=== PATIENT | female | born 1960 | race Caucasian/White ===

== ENCOUNTER 2019-03-19 17:19 | Emergency (ER) | payer BC, OTHER ==
[2019-03-19] MEDS ORDERED: Acetaminophen/HYDROcodone 325-5 MG Tab PO ONE (18:09)
--- NOTE | 2019-03-19 18:48 | EDM.PDOC ---
ED HPI GENERAL MEDICAL PROBLEM - General Chief Complaint: Lower Extremity Injury/Pain Stated Complaint: SLIPPED ON ICE,LEFT ANKLE INJURY Time Seen by Provider: 03/19/19 17:44 Source of Information: Reports: Patient, RN Notes Reviewed - History of Present Illness INITIAL COMMENTS - FREE TEXT/NARRATIVE: 58-year-old female comes in with left foot and ankle pain. She slipped on the ice about an hour ago in her left ankle and foot. Swelling to the top of her foot and has quite severe pain with weightbearing, no other area of pain or injury. Left Ankle Pain Score (Numeric/FACES): 9 - Related Data Allergies Allergy/AdvReac Type Severity Reaction Status Date / Time Penicillins Allergy Anaphylactic Verified 03/19/19 17:43 Shock Home Meds: Home Meds . [No Known Home Meds] 03/19/19 [History] Past Medical History - Past Surgical History HEENT Surgical History: Reports: Tonsillectomy GI Surgical History: Reports: Appendectomy Female Surgical History: Reports: Hysterectomy Musculoskeletal Surgical History: Reports: Hip Replacement Social & Family History - Tobacco Use Smoking Status *Q: Current Every Day Smoker Years of Tobacco use: 30 Packs/Tins Daily: 1 - Caffeine Use Caffeine Use: Reports: Coffee - Recreational Drug Use Recreational Drug Use: No Review of Systems - Review of Systems Review Of Systems: See Below Constitutional: Reports: No Symptoms Mouth/Throat: Reports: No Symptoms Respiratory: Denies: Shortness of Breath, Pleuritic Chest Pain Cardiovascular: Denies: Chest Pain GI/Abdominal: Denies: Abdominal Pain, Nausea, Vomiting Musculoskeletal: Reports: Joint Pain (Left foot and ankle). Denies: Back Pain, Leg Pain Skin: Denies: Bruising Neurological: Reports: No Symptoms ED EXAM, GENERAL - Physical Exam Exam: See Below General Appearance: Alert, Mild Distress Head: Atraumatic Neck: Supple Respiratory/Chest: No Respiratory Distress, Lungs Clear, Normal Breath Sounds Cardiovascular: Regular Rate, Rhythm Extremities: Joint Swelling (There is swelling of the dorsal aspect of the left mid foot with localized tenderness of the midfoot dorsally and laterally and also very minimal swelling and moderate tenderness of the ankle medially and laterally. Point is stable. Leg is otherwise completely nontender) Course - Vital Signs Last Recorded V/S: Last Vital Signs Temp 98.2 F 03/19/19 17:39 Pulse 78 03/19/19 17:39 Resp 18 03/19/19 17:39 BP 168/78 H 03/19/19 17:39 Pulse Ox 96 03/19/19 17:39 - Orders/Labs/Meds Orders: Active Orders 24 hr Category Date Time Status Ankle Min 3V Lt [CR] Stat Exams 03/19/19 17:50 Taken Foot Comp Min 3V Lt [CR] Stat Exams 03/19/19 17:50 Taken Meds: Medications Discontinued Medications Generic Name Dose Route Start Last Admin Trade Name Kelli PRN Reason Stop Dose Admin Hydrocodone Bitart/Acetaminophen 1 tab 03/19/19 18:09 03/19/19 18:32 [place] 325-5 Mg PO 03/19/19 18:10 1 tab ONETIME ONE Administration - Re-Assessments/Exams Free Text/Narrative Re-Assessment/Exam: 03/19/19 19:00 X-rays of the ankle and foot do show spurring of the heel and also some spurring of the inferior lateral aspect of the fibula. There is a calcification inferior to the heel of the left foot but the edges are smooth and rounded, I do not believe that is an avulsion fracture. I discussed all of these findings with patient and her . We will treat this with Jeff wrap, ice packs and elevation. She does have crutches at home. Discharge instructions as documented. Departure - Departure Time of Disposition: 18:46 Disposition: Home, Self-Care 01 Condition: Fair Clinical Impression: Fall, Left ankle sprain, Sprain of foot, left - Discharge Information Instructions: Ankle Sprain, [id number] Referrals: PCP,None [Primary Care Provider] - Forms: ED Department Discharge Additional Instructions: Jeff wrap, ice packs and elevation as needed for swelling, Tylenol every 6-8 hours for mild to moderate discomfort or hydrocodone if needed for more severe pain. As discussed you also can take one half tablet hydrocodone along with 500 mg Tylenol for less side effects and better pain control than just Tylenol alone. Use crutches until pain resolving, have rechecked if not getting back towards normal in 5-7 days as expected. - My Orders Last 24 Hours: My Active Orders 03/19/19 17:50 Ankle Min 3V Lt [CR] Stat Foot Comp Min 3V Lt [CR] Stat - Assessment/Plan Last 24 Hours: My Active Orders 03/19/19 17:50 Ankle Min 3V Lt [CR] Stat Foot Comp Min 3V Lt [CR] Stat
--- NOTE | 2019-03-20 06:51 | CR ---
Left ankle: Four views of the left ankle were obtained. Comparison: No prior ankle exam. Slight calcifications seen within the distal Achilles tendon at the attachment to the calcaneus. Plantar spur is also noted. Ankle mortise is symmetric. No acute fracture or dislocation is seen. Impression: 1. Findings as noted above. 2. No acute bony abnormality is appreciated on left ankle exam. Diagnostic code #2
--- NOTE | 2019-03-20 08:51 | CR ---
Left foot: Four views of left foot were obtained. Comparison: No previous foot exam. Calcaneal spurs and calcifications as noted on ankle exam. No acute fracture, dislocation or other bony abnormality is appreciated. Impression: 1. Nothing acute is appreciated on left foot exam. Diagnostic code #2
== END 2019-03-19 19:09 | disposition home or self-care (01) ==
LOC: JD.ED 17:19
DX: S93.402A Sprain of unspecified ligament of left ankle, initial encounter (principal); S93.602A Unspecified sprain of left foot, initial encounter; F17.210 Nicotine dependence, cigarettes, uncomplicated; Z88.0 Allergy status to penicillin; W00.0XXA Fall on same level due to ice and snow, initial encounter
CPT/HCPCS: 73610; 73630; 99283; A9270

== ENCOUNTER 2021-02-17 20:43 | Emergency (ER) | payer OTHER ==
--- NOTE | 2021-02-17 21:51 | EDM.PDOC ---
ED HPI GENERAL MEDICAL PROBLEM - General Chief Complaint: General Stated Complaint: FEVER/COUGH/SORE THROAT/EAR PAIN Time Seen by Provider: 02/17/21 20:49 Source of Information: Reports: Patient, RN Notes Reviewed History Limitations: Reports: No Limitations - History of Present Illness INITIAL COMMENTS - FREE TEXT/NARRATIVE: Patient is a 60-year-old female who presents to the ER for the evaluation of her multiple [id number] symptoms. The patient states that these started about 2 days ago, she has felt feverish and chilled, has had a cough, some shortness of breath, head congestion, ear pain, sore throat and generalized abdominal aches. States she does have a history of kidney stones, but this feels different than that. She was not vaccinated for COVID-19. 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 States she does have a history of elevated blood pressures, and she is concerned because her blood pressures have been elevated when she has not been feeling well. Bilateral Flank Pain Score (Numeric/FACES): 8 - Related Data Allergies Allergy/AdvReac Type Severity Reaction Status Date / Time Penicillins Allergy Anaphylactic Verified 02/17/21 21:08 Shock Home Meds: Home Meds Levofloxacin [Levaquin] 500 mg PO DAILY #6 tablet 02/17/21 [Rx] Past Medical History - Past Surgical History HEENT Surgical History: Reports: Tonsillectomy GI Surgical History: Reports: Appendectomy Female Surgical History: Reports: Hysterectomy Musculoskeletal Surgical History: Reports: Hip Replacement Social & Family History - Caffeine Use Caffeine Use: Reports: Coffee ED ROS GENERAL - Review of Systems Review Of Systems: Comprehensive ROS is negative, except as noted in HPI. ED EXAM, GENERAL - Physical Exam Exam: See Below Exam Limited By: No Limitations General Appearance: Alert, WD/WN, No Apparent Distress Ears: Normal External Exam, Normal Canal, Hearing Grossly Normal, Normal TMs Respiratory/Chest: No Respiratory Distress, Lungs Clear, Normal Breath Sounds, No Accessory Muscle Use, Chest Non-Tender Cardiovascular: Normal Peripheral Pulses, Regular Rate, Rhythm, No Edema GI/Abdominal: Normal Bowel Sounds, Soft, Non-Tender, No Distention, No Mass Extremities: Normal Inspection, Normal Capillary Refill Neurological: Alert, Oriented, Normal Cognition, No Motor/Sensory Deficits Psychiatric: Normal Affect, Normal Mood Skin Exam: Warm, Dry, Intact, Normal Color, No Rash Course - Vital Signs Last Recorded V/S: Last Vital Signs Temp 96.6 F L 02/17/21 21:03 Pulse 92 02/17/21 21:03 Resp 16 02/17/21 21:03 BP 174/74 H 02/17/21 21:03 Pulse Ox 97 02/17/21 21:03 - Orders/Labs/Meds Orders: Active Orders 24 hr Category Date Time Status Chest 1V Frontal [CR] Stat Exams 02/17/21 20:49 Ordered CULTURE URINE [MREF] Urgent Lab 02/17/21 22:06 Ordered Labs: Laboratory Tests 02/17/21 02/17/21 02/17/21 Range/Units 20:55 21:10 21:10 WBC 14.44 H (3.98-10.04) K/mm3 RBC 4.49 (3.98-5.22) M/mm3 Hgb 13.5 (11.2-15.7) gm/dl Hct 40.7 (34.1-44.9) % MCV 90.6 (79.4-94.8) fl MCH 30.1 (25.6-32.2) pg MCHC 33.2 (32.2-35.5) g/dl RDW Std Deviation 45.0 (36.4-46.3) fL Plt Count 202 (182-369) K/mm3 MPV 10.0 (9.4-12.3) fl Neut % (Auto) 77.7 H (34.0-71.1) % Lymph % (Auto) 12.6 L (19.3-51.7) % [place] % (Auto) 8.2 (4.7-12.5) % Eos % (Auto) 1.0 (0.7-5.8) Baso % (Auto) 0.3 (0.1-1.2) % Neut # (Auto) 11.21 H (1.56-6.13) K/mm3 Lymph # (Auto) 1.82 (1.18-3.74) K/mm3 [place] # (Auto) 1.19 H (0.24-0.36) K/mm3 Eos # (Auto) 0.15 (0.04-0.36) K/mm3 Baso # (Auto) 0.04 (0.01-0.08) K/mm3 Sodium 140 (136-145) mEq/L Potassium 3.6 (3.5-5.1) mEq/L Chloride 103 (98-107) mEq/L Carbon Dioxide 30 (21-32) mEq/L Anion Gap 10.6 (5-15) BUN 18 (7-18) mg/dL Creatinine 0.9 (0.55-1.02) mg/dL Est Cr Clr Drug Dosing 62.23 mL/min Estimated GFR (MDRD) > 60 (>60) mL/min BUN/Creatinine Ratio 20.0 H (14-18) Glucose 105 H (70-99) mg/dL Calcium 9.1 (8.5-10.1) mg/dL Total Bilirubin 0.2 (0.2-1.0) mg/dL AST 18 (15-37) U/L ALT 22 (14-59) U/L Alkaline Phosphatase 115 (46-116) U/L C-Reactive Protein 5.4 H* (<1.0) mg/dL Total Protein 7.4 (6.4-8.2) g/dl Albumin 3.7 (3.4-5.0) g/dl Globulin 3.7 gm/dL Albumin/Globulin Ratio 1.0 (1-2) Urine Color (Yellow) Urine Appearance (Clear) Urine pH (5.0-8.0) Ur Specific [place] (1.005-1.030) Urine Protein (Negative) Urine Glucose (UA) (Negative) Urine Ketones (Negative) Urine Occult Blood (Negative) Urine Nitrite (Negative) Urine Bilirubin (Negative) Urine Urobilinogen (0.2-1.0) Ur Leukocyte Esterase (Negative) Urine RBC (0-5) /hpf Urine WBC (0-5) /hpf Ur Squamous Epith Cells (0-5) /hpf Urine Bacteria (FEW) /hpf Urine Mucus (FEW) /hpf Urine Yeast (NOT SEEN) SARS-CoV-2 RNA (MORGAN) Negative (NEGATIVE) 02/17/21 Range/Units 21:10 WBC (3.98-10.04) K/mm3 RBC (3.98-5.22) M/mm3 Hgb (11.2-15.7) gm/dl Hct (34.1-44.9) % MCV (79.4-94.8) fl MCH (25.6-32.2) pg MCHC (32.2-35.5) g/dl RDW Std Deviation (36.4-46.3) fL Plt Count (182-369) K/mm3 MPV (9.4-12.3) fl Neut % (Auto) (34.0-71.1) % Lymph % (Auto) (19.3-51.7) % [place] % (Auto) (4.7-12.5) % Eos % (Auto) (0.7-5.8) Baso % (Auto) (0.1-1.2) % Neut # (Auto) (1.56-6.13) K/mm3 Lymph # (Auto) (1.18-3.74) K/mm3 [place] # (Auto) (0.24-0.36) K/mm3 Eos # (Auto) (0.04-0.36) K/mm3 Baso # (Auto) (0.01-0.08) K/mm3 Sodium (136-145) mEq/L Potassium (3.5-5.1) mEq/L Chloride (98-107) mEq/L Carbon Dioxide (21-32) mEq/L Anion Gap (5-15) BUN (7-18) mg/dL Creatinine (0.55-1.02) mg/dL Est Cr Clr Drug Dosing mL/min Estimated GFR (MDRD) (>60) mL/min BUN/Creatinine Ratio (14-18) Glucose (70-99) mg/dL Calcium (8.5-10.1) mg/dL Total Bilirubin (0.2-1.0) mg/dL AST (15-37) U/L ALT (14-59) U/L Alkaline Phosphatase (46-116) U/L C-Reactive Protein (<1.0) mg/dL Total Protein (6.4-8.2) g/dl Albumin (3.4-5.0) g/dl Globulin gm/dL Albumin/Globulin Ratio (1-2) Urine Color Yellow (Yellow) Urine Appearance Clear (Clear) Urine pH 7.0 (5.0-8.0) Ur Specific [place] 1.015 (1.005-1.030) Urine Protein Negative (Negative) Urine Glucose (UA) Negative (Negative) Urine Ketones Negative (Negative) Urine Occult Blood 2+ H (Negative) Urine Nitrite Negative (Negative) Urine Bilirubin Negative (Negative) Urine Urobilinogen 0.2 (0.2-1.0) Ur Leukocyte Esterase 1+ H (Negative) Urine RBC 10-20 H (0-5) /hpf Urine WBC 10-20 H (0-5) /hpf Ur Squamous Epith Cells 5-10 H (0-5) /hpf Urine Bacteria Moderate H (FEW) /hpf Urine Mucus Few (FEW) /hpf Urine Yeast Few H (NOT SEEN) SARS-CoV-2 RNA (MORGAN) (NEGATIVE) Meds: Medications Discontinued Medications Generic Name Dose Route Start Last Admin Trade Name Freq PRN Reason Stop Dose Admin Levofloxacin 500 mg 02/17/21 22:06 Levofloxacin 500 Mg Tab PO 02/17/21 22:07 ONETIME ONE - Re-Assessments/Exams Free Text/Narrative Re-Assessment/Exam: 02/17/21 21:50 patient presents to the ER for evaluation of her multiple [id number] symptoms. Covid swab obtained at time of triage, along with some basic labs, chest x-ray and a urinalysis for further investigation. It is highly likely that the patient does have COVID-19. 02/17/21 22:08 Since COVID-19 screen did come back negative for today's purposes however the patient states that the nurse did not think she got a most accurate swab. Patient White blood cell count is elevated at 14.44 with 77% neutrophils on the auto differential. CRP is elevated at 5.4. Urinalysis is suspect for ongoing UTI possibly pyelonephritis. urine culture has been sent as well. We will start her on oral Levaquin, I do highly suspect that she does have Covid, and the swab was done either too early, or not well enough and she should self isolate until she can get swabbed again in a few days. I will give her a note to stay home from work to do as such. If she indeed gets a second negative Covid screen, then she may be released to normal work. Departure - Departure Time of Disposition: 22:13 Disposition: Home, Self-Care 01 Condition: Good Clinical Impression: Suspected COVID-19 virus infection UTI (urinary tract infection) Qualifiers: Urinary tract infection type: acute pyelonephritis Qualified Code(s): N10 - Acute pyelonephritis - Discharge Information *PRESCRIPTION DRUG MONITORING PROGRAM REVIEWED*: No *COPY OF PRESCRIPTION DRUG MONITORING REPORT IN PATIENT BABAR: No Prescriptions: Levofloxacin [Levaquin] 500 mg PO DAILY #6 tablet Instructions: 10 Things You Can Do to Manage Your COVID-19 Symptoms at Home - [facility] (11/27/2020) Referrals: PCP,None [Primary Care Provider] - Forms: ED Department Discharge, ED Return to Work/School Form Additional Instructions: You were evaluated in the ER today for your [id number] symptoms. Your COVID-19 test did come back negative, but sometimes these are false negatives. These Covid screens are only about 60% accurate; and it is common to test negative initially but then test positive a few days later. Due to this, we recommend that you try to isolate yourself away from others, and get retested for COVID-19 in about 3 or 4 days. There are multiple sites that can do this, there is a drive-through clinic by the , there is a walk-in clinic and our Covid clinic that can help you with these. Your white count was slightly elevated, and your urinalysis was suspect for a UTI/pyelonephritis in nature. You have been started on antibiotics; Levaquin 500 mg 1 tablet daily. First dose was given in the ER, and you will need to go to the [place] drugstore, tomorrow to warp picker the rest of these medications up and take as directed. Please call the drugstore prior to going there and tell them that you think you have COVID-19, so they can bring the medication out to you to try to limit exposure to others. Continue all other medications as previously prescribed. I would recommend that you obtain a pulse oximeter, to monitor your oxygen levels. This can be obtained at many drugstores in [place], but inquire about this at your local drugstore tomorrow to see if they have one available for you. If your oxygen level should drop below 90%, for prolonged amount of time like 5 or 10 minutes at rest, you should come back to the ER for more urgent examination. It is highly suspect that you do indeed have COVID-19, and I would recommend that you try to quarantine yourself away from others for at least 10 days from the time you are symptomatic. Do not hesitate to return to the ER at any time if symptoms change or worsen. Sepsis Event Note (ED) - Evaluation Sepsis Screening Result: No Definite Risk - Focused Exam Vital Signs: Vital Signs Temp Pulse Resp BP Pulse Ox 02/17/21 21:03 96.6 F L 92 16 174/74 H 97 - My Orders Last 24 Hours: My Active Orders 02/17/21 20:49 Chest 1V Frontal [CR] Stat 02/17/21 22:06 CULTURE URINE [MREF] Urgent - Assessment/Plan Last 24 Hours: My Active Orders 02/17/21 20:49 Chest 1V Frontal [CR] Stat 02/17/21 22:06 CULTURE URINE [MREF] Urgent
[2021-02-17] MEDS ORDERED: Levofloxacin 500 MG Tab PO ONE (22:06)
--- NOTE | 2021-02-18 06:27 | CR ---
Chest: Portable view of the chest was obtained. Comparison: No prior chest imaging is available. Heart size and mediastinum are within normal limits. Lucency is noted within the left lung apex most likely representing small bullous change with adjacent scarring. Lungs otherwise are clear with no acute parenchymal change. Bony structure shows mild degenerative change within the spine with scattered end plate spurring. Impression: 1. Probable small bullous change within left upper chest with slight adjacent scarring. 2. Nothing acute is otherwise seen on portable chest x-ray. Diagnostic code #2
== END 2021-02-17 22:20 | disposition home or self-care (01) ==
LOC: JD.ED 20:43
DX: N10 Acute pyelonephritis (principal); Z20.822 Contact with and (suspected) exposure to COVID-19; Z88.0 Allergy status to penicillin
CPT/HCPCS: 36415; 71045; 80053; 81001; 85025; 86140; 87086; 87635; 99284; A9270; U0002

== ENCOUNTER 2021-05-14 19:32 | Emergency (ER) | payer MEDICAID, OTHER ==
[2021-05-14] MEDS ORDERED: Sodium Chloride 0.9% 10 ML Syringe FLUSH PRN (19:51)
--- NOTE | 2021-05-14 20:57 | EDM.PDOC ---
ED HPI GENERAL MEDICAL PROBLEM - General Chief Complaint: Cardiovascular Problem Stated Complaint: RAPID HEART BEAT Time Seen by Provider: 05/14/21 20:03 Source of Information: Reports: Patient, Family () History Limitations: Reports: No Limitations - History of Present Illness INITIAL COMMENTS - FREE TEXT/NARRATIVE: Mrs. Soto is a most pleasant 60-year-old woman who now presents the ED after experiencing rapid, regular palpitations that developed suddenly while she was watching television around 18:40 this evening. She put a pulse oximeter on, which indicated a heart rate of 150 to 170 bpm. While she had the palpitations, she had mild left-sided chest pain, some blurry vision, very slight dyspnea, some nausea, and diaphoresis. The patient took 3 aspirin, along with one of her 's nitroglycerin tablets, and one of her 's [place] tablets. The symptoms self-terminated after about 30 minutes, prior to arrival to the ED. At present, the patient states that she feels back to normal. The patient states that she had a similar episode, also lasting about 30 minutes, this past summer. She did not seek medical evaluation following that event. The patient notes that she was diagnosed with COVID-19 on 04/16/2021 or 04/17/2021. Her symptoms resolved on 04/24/2021 or 04/25/2021. At triage, the patient's initial BP was found to be modestly elevated 154/94, otherwise, she was hemodynamically stable, afebrile, saturating 96% on room air. She appears to be comfortable, in no acute distress. Since the resolution of her COVID symptoms, the patient denies having a recent fever, chills, sore throat, ear pain, nasal or sinus congestion, cough, dyspnea, chest pain, palpitations, nausea, vomiting, constipation, diarrhea, abdominal pain, urinary symptoms, recent weight gain or weight loss, recent bloody bowel movements or black bowel movements, recent joint aches, headaches, or rashes. The patient's PCP is Celi Hernandez NP, in [place]. She has not received a COVID vaccination, nor an influenza vaccination this season. - Related Data Allergies Allergy/AdvReac Type Severity Reaction Status Date / Time Penicillins Allergy Anaphylactic Verified 05/14/21 19:45 Shock Home Meds: Home Meds Lisinopril/Hydrochlorothiazide [Lisinopril-HCTZ 10-12.5 MG] 1 tab PO DAILY 05/14/21 [History] Metoprolol Succinate [Toprol XL] 1 tab PO BEDTIME #30 tab.er 05/14/21 [Rx] Past Medical History Cardiovascular History: Reports: High Cholesterol (untreated), Hypertension Musculoskeletal History: Reports: Osteoarthritis Endocrine/Metabolic History: Reports: Obesity/BMI 30+ - Infectious Disease History Infectious Disease History: Reports: Novel Coronavirus (dx'd 04/16/2021 or 04/17/2021) - Past Surgical History HEENT Surgical History: Reports: Oral Surgery (dental extractions), Tonsillectomy GI Surgical History: Reports: Appendectomy Female Surgical History: Reports: Section (x 1), Hysterectomy (partial) Musculoskeletal Surgical History: Reports: Hip Replacement (right) Social & Family History - Tobacco Use Tobacco Use Status *Q: Current Every Day Tobacco User Years of Tobacco use: 41 Packs/Tins Daily: 0.5 Packs/Tins Daily Comment: Down from 1.5 ppd Tobacco Use Comment: Started smoking 1980 - Caffeine Use Caffeine Use: Reports: Coffee - Alcohol Use Alcohol Use History: Yes Alcohol Use Frequency: Rarely - Recreational Drug Use Recreational Drug Use: No - Living Situation & Occupation Living situation: Reports: , with Spouse 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 ED EXAM, GENERAL - Physical Exam Exam: See Below Exam Limited By: No Limitations General Appearance: Alert, WD/WN, No Apparent Distress Eye Exam: Bilateral Eye: EOMI, Normal Inspection Ears: Normal External Exam, Hearing Grossly Normal Nose: Normal Inspection Throat/Mouth: Normal Inspection, Normal Lips, Normal Voice, No Airway Compromise Head: Atraumatic, Normocephalic Neck: Normal Inspection, Full Range of Motion Respiratory/Chest: No Respiratory Distress, Lungs Clear, Normal Breath Sounds, No Accessory Muscle Use Cardiovascular: Normal Peripheral Pulses, Regular Rate, Rhythm, No Gallop, No JVD, No Murmur, No Rub Peripheral Pulses: 3+: Radial (L), Radial (R) GI/Abdominal: Normal Bowel Sounds, Soft, Non-Tender, No Organomegaly, No Distention, No Abnormal Bruit, No Mass Back Exam: Normal Inspection, Full Range of Motion, NT Extremities: Normal Inspection, Normal Range of Motion, Normal Capillary Refill Neurological: Alert, Oriented, Normal Cognition, No Motor/Sensory Deficits Psychiatric: Normal Affect Skin Exam: Warm, Dry, Intact, Normal Color, No Rash #1 Interpretation EKG Date: 05/14/21 Time: 19:38 Rhythm: NSR Rate (Beats/Min): 72 [place]: Normal P-Wave: Present QRS: Normal ST-T: Depressed (<[address] pression V3V6 and inferior leads, but no T wave inversions) QT: Normal Comparison: NA - No Prior EKG #2 Interpretation EKG Date: 05/14/21 Time: 21:09 Rhythm: Other (SVT) Rate (Beats/Min): 160 [place]: Normal P-Wave: Absent QRS: Normal ST-T: Depressed (ST depression V2-V6 and inferior leads, but no T-wave inversions) QT: Prolonged (QTc 493 ms - likely longer due to rate) Comparison: Change From Previous EKG #3 Interpretation EKG Date: 05/14/21 Time: 21:27 Rhythm: NSR Rate (Beats/Min): 71 [place]: Normal P-Wave: Present QRS: Normal ST-T: Normal QT: Normal Comparison: Change From Previous EKG Course - Vital Signs Last Recorded V/S: Last Vital Signs Temp 36.7 C 05/14/21 19:40 Pulse 67 05/14/21 23:14 Resp 17 05/14/21 23:14 BP 148/71 H 05/14/21 23:14 Pulse Ox 97 05/14/21 23:14 - Orders/Labs/Meds Labs: Laboratory Tests 05/14/21 05/14/21 05/14/21 Range/Units 20:00 20:05 20:05 WBC 8.07 (3.98-10.04) K/mm3 RBC 4.73 (3.98-5.22) M/mm3 Hgb 14.1 (11.2-15.7) gm/dl Hct 42.8 (34.1-44.9) % MCV 90.5 (79.4-94.8) fl MCH 29.8 (25.6-32.2) pg MCHC 32.9 (32.2-35.5) g/dl RDW Std Deviation 44.4 (36.4-46.3) fL Plt Count 209 (182-369) K/mm3 MPV 9.9 (9.4-12.3) fl Neut % (Auto) 58.1 (34.0-71.1) % Lymph % (Auto) 29.2 (19.3-51.7) % Valley % (Auto) 9.7 (4.7-12.5) % Eos % (Auto) 2.1 (0.7-5.8) Baso % (Auto) 0.5 (0.1-1.2) % Neut # (Auto) 4.69 (1.56-6.13) K/mm3 Lymph # (Auto) 2.36 (1.18-3.74) K/mm3 Valley # (Auto) 0.78 H (0.24-0.36) K/mm3 Eos # (Auto) 0.17 (0.04-0.36) K/mm3 Baso # (Auto) 0.04 (0.01-0.08) K/mm3 PT 9.5 L (9.7-12.0) SECONDS INR < 0.93 D-Dimer, Quantitative 0.43 (0.19-0.50) mg/L Sodium (136-145) mEq/L Potassium (3.5-5.1) mEq/L Chloride (98-107) mEq/L Carbon Dioxide (21-32) mEq/L Anion Gap (5-15) BUN (7-18) mg/dL Creatinine (0.55-1.02) mg/dL Est Cr Clr Drug Dosing Estimated GFR (MDRD) (>60) mL/min BUN/Creatinine Ratio (14-18) Glucose (70-99) mg/dL Calcium (8.5-10.1) mg/dL Magnesium (1.8-2.4) mg/dL Total Bilirubin (0.2-1.0) mg/dL AST (15-37) U/L ALT (14-59) U/L Alkaline Phosphatase (46-116) U/L Troponin I (0.00-0.056) ng/mL NT-Pro-B Natriuret Pep (0-125) pg/mL Total Protein (6.4-8.2) g/dl Albumin (3.4-5.0) g/dl Globulin gm/dL Albumin/Globulin Ratio (1-2) TSH 3rd Generation 1.671 (0.358-3.74) uIU/mL 05/14/21 05/14/21 Range/Units 20:05 20:05 WBC (3.98-10.04) K/mm3 RBC (3.98-5.22) M/mm3 Hgb (11.2-15.7) gm/dl Hct (34.1-44.9) % MCV (79.4-94.8) fl MCH (25.6-32.2) pg MCHC (32.2-35.5) g/dl RDW Std Deviation (36.4-46.3) fL Plt Count (182-369) K/mm3 MPV (9.4-12.3) fl Neut % (Auto) (34.0-71.1) % Lymph % (Auto) (19.3-51.7) % Valley % (Auto) (4.7-12.5) % Eos % (Auto) (0.7-5.8) Baso % (Auto) (0.1-1.2) % Neut # (Auto) (1.56-6.13) K/mm3 Lymph # (Auto) (1.18-3.74) K/mm3 Valley # (Auto) (0.24-0.36) K/mm3 Eos # (Auto) (0.04-0.36) K/mm3 Baso # (Auto) (0.01-0.08) K/mm3 PT (9.7-12.0) SECONDS INR D-Dimer, Quantitative (0.19-0.50) mg/L Sodium 143 (136-145) mEq/L Potassium 3.7 (3.5-5.1) mEq/L Chloride 105 (98-107) mEq/L Carbon Dioxide 30 (21-32) mEq/L Anion Gap 11.7 (5-15) BUN 19 H (7-18) mg/dL Creatinine 0.9 (0.55-1.02) mg/dL Est Cr Clr Drug Dosing TNP Estimated GFR (MDRD) > 60 (>60) mL/min BUN/Creatinine Ratio 21.1 H (14-18) Glucose 107 H (70-99) mg/dL Calcium 8.9 (8.5-10.1) mg/dL Magnesium 2.0 (1.8-2.4) mg/dL Total Bilirubin 0.3 (0.2-1.0) mg/dL AST 17 (15-37) U/L ALT 27 (14-59) U/L Alkaline Phosphatase 105 (46-116) U/L Troponin I < 0.017 (0.00-0.056) ng/mL NT-Pro-B Natriuret Pep 129 H (0-125) pg/mL Total Protein 7.1 (6.4-8.2) g/dl Albumin 3.5 (3.4-5.0) g/dl Globulin 3.6 gm/dL Albumin/Globulin Ratio 1.0 (1-2) TSH 3rd Generation (0.358-3.74) uIU/mL Meds: Medications Discontinued Medications Generic Name Dose Route Start Last Admin Trade Name Freq PRN Reason Stop Dose Admin Adenosine 12 mg 05/14/21 21:15 05/14/21 21:23 Adenosine 6 Mg/2 Ml Sdv IVPUSH 05/14/21 21:16 12 mg NOW ONE Administration Metoprolol Succinate 25 mg 05/14/21 22:27 05/14/21 23:04 Metoprolol Succinate 25 Mg Tab.Er PO 05/14/21 22:28 25 mg ONETIME ONE Administration Sodium Chloride 10 ml 05/14/21 19:51 05/14/21 21:39 Sodium Chloride 0.9% 10 Ml Syringe FLUSH 10 ml ASDIRECTED PRN Administration Keep Vein Open - Re-Assessments/Exams Free Text/Narrative Re-Assessment/Exam: 05/14/21 20:54 As above, the patient had documented tachycardia at home, but it resolved prior to her arrival here in the ED. An ECG, obtained at triage, demonstrates a normal sinus rhythm at 72 bpm. Her physical exam is unremarkable. A work-up including numerous blood tests and a portable chest x-ray were ordered at triage. I have added a TSH. 05/14/21 21:05 Portable chest radiograph appears to be grossly normal. The cardiac silhouette is within normal limits. No pulmonary vascular congestion. No pleural effusions seen on this AP view. No focal infiltrate. No pneumothorax. Formal read per the Radiologist pending. 05/14/21 21:08 The patient has redeveloped tachycardia, currently at 163 bpm. A repeat ECG is being obtained now. 05/14/21 21:16 The ECG demonstrates what appears to be in SVT at 160 bpm. I have ordered adenosine 12 mg IVP. 05/14/21 21:21 The patient's CBC is unremarkable. Her CMP is remarkable for slight hyperglycemia of 107, with the remainder of her CMP being unremarkable. Her magnesium level is within normal limits at 2.0. Her TSH is within normal limits at 1.671. Her troponin is undetectably low. Her pro-BNP is slightly elevated at 129. Her D-dimer is within normal limits at 0.43. Her INR is within normal limits. 05/14/21 21:31 Adenosine induced complete AV block, revealing atrial bradycardia. The patient then resumed a normal sinus rhythm. She tolerated the procedure well. Post-adenosine ECG demonstrates a normal sinus rhythm at 71 bpm. No ischemic changes. 05/14/21 22:26 Case discussed with Constance at [facility] at 22:18. Case then discussed with Dr. Martinez, Transmission Line Engineer at [facility] at 22:22. He recommended that I start the patient on Toprol-XL 25 or 50 mg daily, then follow-up as an outpatient. 05/14/21 22:49 The above was discussed with the patient and her . She will be started on Toprol-XL 25 mg now, and I will submit a prescription that she can fill in the morning. If her symptoms recur, she is to return to the ED for reevaluation. 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 Work-up in the ER included numerous blood tests, a chest x-ray, and several ECGs. An event was captured in the ER, indicating that you were suffering from SVT, most likely due to an AV perla reentrant tachycardia (AVNRT). You have been started on the beta-shy metoprolol succinate (Toprol XL), and a prescription for metoprolol succinate has been sent to the [facility] located in the [employer] store. Take 1 tablet of metoprolol succinate at bedtime, starting tomorrow night, 05/15/2021, as prescribed. As discussed, would be very careful when you stand up, as metoprolol may cause you to feel lightheaded. As discussed, you may feel generally fatigued for the next 2-weeks, until your body becomes used to metoprolol. Please follow-up with the Transmission Line Engineer Dr. Herb Aponte, in [place], at the next available appointment. If any other problems, including recurrence of your symptoms, please do not hesitate to return to the ER. Sepsis Event Note (ED) - Evaluation Sepsis Screening Result: No Definite Risk
--- NOTE | 2021-05-14 21:08 | CR ---
Chest: Portable view of the chest was obtained. Comparison: Prior chest x-ray of 02/17/21. Heart size and mediastinum are within normal limits. Slight lucency is seen within the left upper chest which is stable and presumably represents mild bullous change. Nodular density is noted within the left upper chest which appears to have calcification and is presumably due to a granuloma. Lungs otherwise show no acute parenchymal change. Mild degenerative change is seen within the spine. Impression: 1. Findings as described above. 2. Nothing acute is seen on portable chest x-ray. Diagnostic code #2
[2021-05-14] MEDS ORDERED: Adenosine 6 MG/2 ML SDV IVPUSH ONE (21:15)
[2021-05-14] MEDS ORDERED: Metoprolol Succinate 25 MG Tab.ER PO ONE (22:27)
== END 2021-05-14 23:14 | disposition home or self-care (01) ==
LOC: JD.ED 19:32
DX: I47.1 Supraventricular tachycardia (principal); E66.9 Obesity, unspecified; Z88.0 Allergy status to penicillin; Z79.899 Other long term (current) drug therapy; Z72.0 Tobacco use
CPT/HCPCS: 36415; 71045; 80053; 83735; 83880; 84443; 84484; 85025; 85379; 85610; 93005; 96374; 99285; A9270; J0153

== ENCOUNTER 2022-04-30 21:00 | Emergency (ER) | payer MEDICAID ==
[2022-04-30] MEDS ORDERED: Metoprolol Succinate 50 MG Tab.ER PO STA (21:41)
[2022-04-30] MEDS ORDERED: Verapamil 120 MG Cap.ER PO STA (21:45)
== END 2022-04-30 23:15 | disposition home or self-care (01) ==
LOC: JD.ED 21:00
DX: R00.2 Palpitations (principal); I10 Essential (primary) hypertension; F17.210 Nicotine dependence, cigarettes, uncomplicated; E66.9 Obesity, unspecified; Z68.35 Body mass index [BMI] 35.0-35.9, adult; Z88.0 Allergy status to penicillin; Z79.899 Other long term (current) drug therapy; Z90.49 Acquired absence of other specified parts of digestive tract; Z90.710 Acquired absence of both cervix and uterus
CPT/HCPCS: 36415; 71046; 80053; 83735; 83880; 84443; 84484; 85025; 85379; 93005; 99285; A9270

== ENCOUNTER 2024-01-28 13:32 | Inpatient (IN) | payer BC ==
[2024-01-28 14:16] LABS: BASOPHILS ABSOLUTE AUTO 0.1 K/mm3 (0.0-0.2); BASOPHILS PERCENT AUTO 0.4 % (0.0-1.0); EOSINOPHILS PERCENT AUTO 0.2 % (0.0-6.0); HEMATOCRIT 43.9 % (37.0-47.0); HEMOGLOBIN 14.8 gm/dl (12.0-16.0); IMMATURE GRAN ABSOLUTE AUTO 0.07 K/mm3 (0.00-0.05); IMMATURE GRAN PERCENT AUTO 0.6 % (0.0-0.4); LYMPHOCYTES ABSOLUTE AUTO 1.1 K/mm3 (1.0-4.8); LYMPHOCYTES PERCENT AUTO 8.6 % (24.0-44.0); MEAN CORPUSCULAR HEMOGLOBIN 30.5 pg (28.0-32.0); MEAN CORPUSCULAR HGB CONC 33.7 g/dl (32.0-36.0); MEAN CORPUSCULAR VOLUME 90.5 fl (83.0-99.0); MEAN PLATELET VOLUME 9.4 fl (9.4-12.3); MONOCYTES ABSOLUTE AUTO 0.9 K/mm3 (0.0-0.8); MONOCYTES PERCENT AUTO 7.3 % (0.0-8.0); NEUTROPHILS ABSOLUTE AUTO 10.5 K/mm3 (1.8-7.7); NEUTROPHILS PERCENT AUTO 82.9 % (41.0-71.0); PLATELET COUNT,PLT 226 K/mm3 (150-400); RED BLOOD CELL COUNT 4.85 M/mm3 (4.10-5.30); WHITE BLOOD CELL COUNT,WBC 12.61 K/mm3 (3.9-11.3)
[2024-01-28 14:42] LABS: A/G RATIO 1.2 (1-2); ALBUMIN 4.1 g/dl (3.4-5.0); ANION GAP 14.7 (5-15); BILIRUBIN TOTAL 0.6 mg/dL (0.2-1.0); BUN/CREATININE RATIO 19.1 (14-18); CALCIUM 9.7 mg/dL (8.5-10.1); CREATININE 1.1 mg/dL (0.55-1.02); EST CRCL DRUG DOSING (CG) 43.3 mL/min; POTASSIUM,K 3.7 mEq/L (3.5-5.1); PROTEIN TOTAL,TP 7.5 g/dl (6.4-8.2)
[2024-01-28] MEDS ORDERED: Sodium Chloride 0.9% 10 ML Syringe FLUSH PRN (14:47)
[2024-01-28 16:31] LABS: CORONAVIRUS COVID-19 NAA NEGATIVE (NEGATIVE); INFLUENZA A NAA NEGATIVE (NEGATIVE); RESPIRATORY SYNCYTIAL VIR NAA NEGATIVE (NEGATIVE)
[2024-01-28] MEDS: Aspirin 81 MG Tab.Chew PO ONE (17:46)
[2024-01-28] MEDS: Heparin Sodium/D5W 25,000 UNITS/500 ML BAG IV SCH (19:20)
[2024-01-28] MEDS: Heparin Sodium 5,000 Units/ML Vial IVPUSH ONE (19:20)
[2024-01-28] MEDS ORDERED: Labetalol 100 MG/20 ML MDV IVPUSH PRN (19:34)
[2024-01-28] MEDS ORDERED: hydrALAZINE 20 MG/ML SDV IVPUSH PRN (19:34)
[2024-01-28] MEDS ORDERED: Ondansetron 4 MG/2 ML SDV IV PRN (19:50)
[2024-01-28] MEDS ORDERED: Naloxone 0.4 MG/ML SDV IVPUSH PRN (19:50)
[2024-01-28] MEDS ORDERED: Melatonin 3 MG Tab PO PRN (19:50)
[2024-01-28] MEDS ORDERED: Sennosides/Docusate Sodium 50-8.6 MG Tab PO PRN (19:50)
[2024-01-28] MEDS ORDERED: oxyCODONE 5 MG Tab PO PRN (19:50)
[2024-01-28] MEDS ORDERED: Morphine 2 MG/ML SYRINGE IVPUSH PRN (19:50)
[2024-01-28] MEDS ORDERED: Acetaminophen 325 MG Tab PO PRN (19:50)
[2024-01-28] MEDS: Magnesium Sulfate/Water 4 GM in Premix Bag 1 BAG IV ONE (20:07)
[2024-01-28] MEDS: Pantoprazole 40 MG Vial IVPUSH SCH (20:14)
[2024-01-28] MEDS: Potassium Chloride 20 MEQ Tab.ER PO ONE (20:36)
[2024-01-29 05:32] LABS: BASOPHILS ABSOLUTE AUTO 0.1 K/mm3 (0.0-0.2); BASOPHILS PERCENT AUTO 0.8 % (0.0-1.0); EOSINOPHILS ABSOLUTE AUTO 0.1 K/mm3 (0.0-0.4); EOSINOPHILS PERCENT AUTO 1.7 % (0.0-6.0); HEMATOCRIT 39.6 % (37.0-47.0); HEMOGLOBIN 13.4 gm/dl (12.0-16.0); IMMATURE GRAN ABSOLUTE AUTO 0.02 K/mm3 (0.00-0.05); IMMATURE GRAN PERCENT AUTO 0.3 % (0.0-0.4); LYMPHOCYTES ABSOLUTE AUTO 2.2 K/mm3 (1.0-4.8); LYMPHOCYTES PERCENT AUTO 31.6 % (24.0-44.0); MEAN CORPUSCULAR HEMOGLOBIN 30.8 pg (28.0-32.0); MEAN CORPUSCULAR HGB CONC 33.8 g/dl (32.0-36.0); MEAN PLATELET VOLUME 9.5 fl (9.4-12.3); MONOCYTES ABSOLUTE AUTO 0.7 K/mm3 (0.0-0.8); MONOCYTES PERCENT AUTO 10.3 % (0.0-8.0); NEUTROPHILS ABSOLUTE AUTO 3.9 K/mm3 (1.8-7.7); NEUTROPHILS PERCENT AUTO 55.3 % (41.0-71.0); PLATELET COUNT,PLT 200 K/mm3 (150-400); RED BLOOD CELL COUNT 4.35 M/mm3 (4.10-5.30); WHITE BLOOD CELL COUNT,WBC 7.06 K/mm3 (3.9-11.3)
[2024-01-29 05:41] LABS: ANION GAP 12.3 (5-15); BUN/CREATININE RATIO 23.8 (14-18); CALCIUM 8.6 mg/dL (8.5-10.1); CREATININE 0.8 mg/dL (0.55-1.02); EST CRCL DRUG DOSING (CG) 59.54 mL/min; MAGNESIUM 2.2 mg/dL (1.8-2.4); PHOSPHORUS 4.2 mg/dL (2.6-4.7); POTASSIUM,K 4.3 mEq/L (3.5-5.1)
[2024-01-29] MEDS: Nicotine 14 MG/24 Hr Patch TRDERM SCH (10:45)
[2024-01-29 15:06] LABS: CHOLESTEROL HDL 72 mg/dL (40-59); CHOLESTEROL LDL DIRECT 119 mg/dL (<100); CHOLESTEROL TOTAL 210 mg/dL (<200); TRIGLYCERIDES 58 mg/dL (<150)
[2024-01-29] MEDS ORDERED: atorvaSTATin 40 MG Tab PO SCH (21:00)
[2024-01-30] MEDS ORDERED: Hydrochlorothiazide 25 MG Tab PO SCH (09:00)
[2024-01-30] MEDS ORDERED: Aspirin 81 MG Tab.Chew PO SCH (09:00)
[2024-01-30] MEDS ORDERED: Lisinopril 20 MG Tab PO SCH (09:00)
== END 2024-01-29 18:00 | disposition home or self-care (01) | DRG 190 ==
LOC: JD.ED 13:32 → JD.ICU 19:02
PROVIDERS: ADMIT Student in an Organized Health Care Education/Training Program; ATTEND Student in an Organized Health Care Education/Training Program
DX: I21.4 Non-ST elevation (NSTEMI) myocardial infarction (principal); I47.10 Supraventricular tachycardia, unspecified; E78.00 Pure hypercholesterolemia, unspecified; I10 Essential (primary) hypertension; M19.90 Unspecified osteoarthritis, unspecified site; E66.9 Obesity, unspecified; Z96.641 Presence of right artificial hip joint; M25.512 Pain in left shoulder; Z96.649 Presence of unspecified artificial hip joint; F17.210 Nicotine dependence, cigarettes, uncomplicated; E83.42 Hypomagnesemia; Z88.0 Allergy status to penicillin; Z79.899 Other long term (current) drug therapy; Z68.27 Body mass index [BMI] 27.0-27.9, adult; Z86.16 Personal history of COVID-19; Z90.89 Acquired absence of other organs; Z98.890 Other specified postprocedural states; Z90.710 Acquired absence of both cervix and uterus; Z90.49 Acquired absence of other specified parts of digestive tract
CPT/HCPCS: 0241U; 36415; 71045; 71045-26; 78452; 78452-26; 80048; 80053; 80061; 83735; 83880; 84100; 84484; 85025; 85730; 93005; 93010; 93017; 93306; 94762; 99284; 99285; A9270-GY; A9500; J1644; J2470; J2785; J3475